=== PATIENT | male | born 1955 | race Caucasian/White ===

== ENCOUNTER → 2020-10-31 | Outpatient (CLI) | payer OTHER ==
[~2020-10-31] MED LIST: ASPIR 8181 MG PO; GLUCOPHAGE 500500 MG PO; HYDROCHLOROTH12.5 M1 PO; NORCO 7.5-3251 EACH PO; RAMIPRIL10 MG PO; XARELTO10 MG PO
[2020-11-01 08:14] LABS: ESTRADIOL 26.4 pg/mL (7.6-42.6); FSH 5.7 mIU/mL (1.5-12.4); LUTEINIZING HORMONE(LH) 6.8 mIU/mL (1.7-8.6); PROLACTIN 10.9 ng/mL (4.0-15.2)
[2020-11-01 09:14] LABS: SEX HORM BINDING GLOB, SERUM 19.1 nmol/L (19.3-76.4)
[2020-11-04 02:09] LABS: TESTOSTERONE, SERUM 329 ng/dL (264-916)
== END ==
LOC: LAB 06:29
PROVIDERS: Nurse Practitioner Family
DX: N52.9 Male erectile dysfunction, unspecified (principal)
CPT/HCPCS: 36415; 82670; 83001; 83002; 84146; 84270; 84402; 84403